=== PATIENT | female | born 1970 | race African-American/Black ===

== ENCOUNTER 2018-09-22 21:49 | Inpatient (IN) | payer OTHER ==
[~2018-09-22] VITALS: Ht 162.6 cm; Wt 92.6 kg
[2018-09-22 21:55] VITALS: Ht 162.6 cm; Wt 92.6 kg
[2018-09-23] VITALS (7 sets, daily range): BP systolic 140–184; BP diastolic 97–122
[2018-09-23] MEDS ORDERED: INVOKANA100 MG PO (02:39)
[2018-09-23] MEDS ORDERED: NOR10 PO (02:39)
[2018-09-23] MEDS ORDERED: METFORMIN HCL500 MG PO (02:39)
[2018-09-23 04:00] LABS: BASOPHIL % 0.4 % (0-2); PLATELET COUNT 306 x10^3mcL (130-400); RED CELL DISTRIBUTION WIDTH 13.8 % (11.5-14.5)
[2018-09-23 04:11] LABS: CHLORIDE SERUM 104 mmol/L (98-107); CREATININE SERUM 0.8 mg/dL (0.6-1.0); GFR1 > 60 mL/min; MAGNESIUM 1.8 mg/dL (1.8-2.4)
[2018-09-23 04:21] LABS: CALCIUM 8.6 mg/dL (8.5-10.1); GLUCOSE SERUM 261 mg/dL (74-106); HDL CHOLESTEROL 51 mg/dL (40-60); LIPASE 273 IU/L (73-393); PHOSPHOROUS 3.7 mg/dL (2.5-4.9); POTASSIUM SERUM 3.7 mmol/L (3.5-5.1); SODIUM SERUM 141 mmol/L (136-145); TRIGLYCERIDES 122 mg/dL (<150)
[2018-09-23 04:23] LABS: AMYLASE 601 U/L (25-115); CHOLESTEROL 219 mg/dL (<200); CHOLESTEROL/HDL RATIO 4.3; FREE T4 1.05 ng/dL (0.76-1.46); FREE THYROXINE INDEX 2.4 ug/dL (1.4-4.5); T4(THYROXINE) 7.2 ug/dL (4.7-13.3)
[2018-09-23 04:25] LABS: T3 TOTAL 1.08 ng/mL
[2018-09-23 11:03] LABS: microscopic required? YES; urine erythrocyte NEGATIVE (NEGATIVE)
[2018-09-23 11:13] LABS: AMPHETAMINE QUAL UR NONE DETECTED (See below)
[2018-09-23] MEDS ORDERED: ATORVASTATIN CA40 M1 PO (12:05)
[2018-09-23] MEDS ORDERED: HYDROCHLOROTH12.5 M2 PO (12:48)
== END 2018-09-23 17:08 | disposition home or self-care (01) | DRG 913 ==
LOC: ED 21:49 → MU 09-23 01:55
PROVIDERS: Family Medicine
DX: S79.912A Unspecified injury of left hip, initial encounter (principal); N17.0 Acute kidney failure with tubular necrosis; E11.65 Type 2 diabetes mellitus with hyperglycemia; Z68.34 Body mass index [BMI] 34.0-34.9, adult; Z79.84 Long term (current) use of oral hypoglycemic drugs; V68.4XXA Person boarding or alighting a heavy transport vehicle injured in noncollision transport accident, initial encounter; Y92.9 Unspecified place or not applicable
CPT/HCPCS: 82962; 83880; 84439; 97110-GP; J2405; J7030; Q0092